=== PATIENT | male | born 1950 | race Caucasian/White ===

== ENCOUNTER 2022-03-09 14:12 | Inpatient (IN) | payer MEDICARE, OTHER ==
[~2022-03-09] VITALS: Ht 190.5 cm; Wt 113.4 kg
[2022-03-09] MEDS ORDERED: ONDA4TAB5 PO (14:51)
[2022-03-09] MEDS ORDERED: ASPI81TA31 PO (14:51)
[2022-03-09] MEDS ORDERED: PANT40TA2 PO (14:51)
[2022-03-09] MEDS ORDERED: ACET-2154 PO (14:51)
[2022-03-09] MEDS ORDERED: DOCU-141 PO (14:51)
[2022-03-09] MEDS ORDERED: ATOR40TA PO (14:51)
[2022-03-09] MEDS ORDERED: INSU100V7 SQ (14:51)
[2022-03-09] MEDS ORDERED: INSU100V36 SQ (14:51)
[2022-03-09 15:31] LABS: CARBON DIOXIDE 24 mmol/L (21-32); CHLORIDE 108 mmol/L (98-107); CREATININE 1.8 mg/dL (0.6-1.3); GLUCOSE 89 mg/dL (74-106); POTASSIUM 4.3 mmol/L (3.5-5.1); UREA NITROGEN, BLOOD 24 mg/dL (7-18)
[2022-03-09 15:35] LABS: ETHANOL < 3 MG/DL (0-0); HEMATOCRIT 37.3 % (36.7-47.1); MEAN CORPUSCULAR VOLUME 88.4 fL (73.0-96.2); PLATELET COUNT (AUTO) 258 K/uL (152-348)
[2022-03-09 15:36] LABS: ALANINE AMINOTRANSFERASE 53 U/L (16-63); ALKALINE PHOSPHATASE 65 U/L (50-136); ASPARTATE AMINOTRANSFERASE 40 U/L (15-37); BILIRUBIN,DIRECT < 0.1 mg/dL (0.0-0.2); BILIRUBIN,TOTAL 0.2 mg/dL (0.2-1.0); TOTAL PROTEIN, SERUM 7.6 g/dL (6.4-8.2)
[2022-03-09 15:37] LABS: ACETAMINOPHEN < 10.0 ug/mL (10-30)
[2022-03-09 15:41] LABS: *AMPHETAMINE, URINE NEGATIVE (NEGATIVE); *CANNABINOID, URINE NEGATIVE (NEGATIVE); *COCCAINE, URINE NEGATIVE (NEGATIVE); *OPIATE, URINE NEGATIVE (NEGATIVE); *PHENCYCLIDINE SCREEN,URINE NEGATIVE (NEGATIVE)
[2022-03-09 15:51] LABS: *BILIRUBIN,URIN 1+ (NEGATIVE); *BLOOD, URINE NEGATIVE (NEGATIVE); *CLARITY,URINE CLEAR (CLEAR); *COLOR,URINE YELLOW (YELLOW); *KETONES,URINE TRACE (NEGATIVE); LEUKOCYTE ESTERASE ,URINE NEGATIVE (NEGATIVE); NITRITE, URINE NEGATIVE (NEGATIVE); PH,URINE 5.5 (5.0-8.0); UGLUCOSE NEGATIVE (NEGATIVE)
[2022-03-09 15:54] LABS: BACTERIA,URINE NONE SEEN /HPF (NONE SEEN); RBC,URINE NONE SEEN /HPF (0-3); SQUAMOUS EPITHELIAL CELL,UR NONE SEEN /HPF (NONE SEEN); WBC,URINE 0-3 /HPF (0-3)
--- NOTE | 2022-03-09 15:54 | NUR ---
Medically cleared by Dr Mendoza. I attempted to give nursing report but [facility] staff is not ready to accept this patient at this time.
--- NOTE | 2022-03-09 17:05 | NUR ---
Note laneesther in EDM - 03/09/22 at 1726 by SALOME Patient ate hospital food try with good appetite. Patient wants his own insulin pen. "OK to have his own insulin." per Dr Mendoza. Patient gave himself 9 units of insulin (Novolog) subQ to his LLQ.
--- NOTE | 2022-03-09 17:05 | NUR ---
Patient ate hospital food tray with very good appetite. Patient wanted his own insulin pen. "OK to have his own insulin." per Dr Mendoza. Patient gave himself 9 units of insulin (Novolog) subQ to his LLQ.
[2022-03-09 17:15] VITALS: BP 139/81
[2022-03-09] MEDS ORDERED: MAGNESIUM HYDROXIDE 30 ML LIQUID UDC PO PRN ×2 (17:15→19:45)
[2022-03-09] MEDS ORDERED: REMEDY ESSENTIAL ZINC PASTE 113 GM TP PRN (17:15)
[2022-03-09] MEDS ORDERED: DEXTROSE 50% 50 ML DISP.SYRIN IV PRN (17:15)
--- NOTE | 2022-03-09 17:25 | NUR ---
Gps/Agricultural Service Worker-Report received from Negar KWAN RN. Admitted patient from ER via gurney , alert, oriented, in no sign of any distress. Upon face to face encounter , noted patient pleasant affect, cooperative . Provided adequate informations on his Health History. Bilateral lower extremity discolored. left great toe w/ some suture , site left open to area..Per Patient he has a Sister Dee Dee , does not know her telephone number, claimed she knows he's being admitted to [facility]. Dr Le was called and was informed of patient's admission. Per patient, Vandana the government affairs manager of his Independent living place made up stories to the Police , who put him on hold. Routine admission care in progress .
--- NOTE | 2022-03-09 18:30 | NUR ---
Gps/Feeder Worker Power Unit Operator- Dr Ladarius Le was called and was informed of the admission
[2022-03-09] MEDS ORDERED: TRAMADOL HCL 50 MG TABLET PO PRN (19:00)
[2022-03-09] MEDS ORDERED: MAG HYDROX/AL HYDROX/SIMETH 30 ML LIQUID UDC PO PRN (19:45)
[2022-03-09] MEDS ORDERED: CLONAZEPAM 0.5 MG TABLET PO PRN (19:45)
[2022-03-09] MEDS ORDERED: INSULIN REGULAR, HUMAN 300 UNIT/3 ML VIAL SQ PRN (21:00)
[2022-03-09] MEDS: INSULIN GLARGINE,HUM 300 UNITS/3 ML CARTRIDGE SQ SCH (21:00)
[2022-03-09] MEDS: ATORVASTATIN 40 MG TABLET PO SCH (21:06)
[2022-03-09] MEDS: BLOOD SUGAR DIAGNOSTIC 1 EACH STRIP VI SCH (21:07)
--- NOTE | 2022-03-09 21:08 | NUR ---
GPS: Pt's blood sugar at bedtime is 73 mg/dl. JOSEFA Sanchez made aware with orders to hold Lantus 30 units SQ tonight. Order carried-out. Pt.made aware. Pt.in dining room area interacting with other pt. Pt.is hyperverbal,has tangential/circumstantial thoughts,seems unpredictable. Safe environment provided. Unit rules explained. Pt's rights handbook/advisement given. Will continue to monitor behavior.
[2022-03-09 21:14] VITALS: BP 152/88
[2022-03-10] MEDS: BLOOD SUGAR DIAGNOSTIC 1 EACH STRIP VI SCH ×4 (06:50→20:58)
[2022-03-10 07:30] VITALS: BP 124/62
[2022-03-10 07:48] LABS: HEMATOCRIT 37.3 % (36.7-47.1); MEAN CORPUSCULAR HEMOGLOBIN 29.2 uug (23.8-33.4); MEAN CORPUSCULAR VOLUME 88.5 fL (73.0-96.2); PLATELET COUNT (AUTO) 245 K/uL (152-348)
[2022-03-10 08:02] LABS: CARBON DIOXIDE 27 mmol/L (21-32); CHLORIDE 107 mmol/L (98-107); CREATININE 1.7 mg/dL (0.6-1.3); GLUCOSE 118 mg/dL (74-106); PHOSPHOROUS 3.2 mg/dL (2.5-4.9); POTASSIUM 4.6 mmol/L (3.5-5.1); UREA NITROGEN, BLOOD 22 mg/dL (7-18)
[2022-03-10] MEDS: NICOTINE 14 MG/24HR PATCH TD SCH (09:01)
[2022-03-10] MEDS: DOCUSATE SODIUM 100 MG CAPSULE PO SCH (09:01)
[2022-03-10] MEDS: ASPIRIN 81 MG TAB.CHEW PO SCH (09:01)
[2022-03-10] MEDS: DIVALPROEX 125 MG TABLET.DR PO SCH ×2 (10:00→21:00)
[2022-03-10] MEDS ORDERED: DEXTROSE 50% 50 ML DISP.SYRIN IV PRN (11:30)
[2022-03-10 16:00] VITALS: BP 160/70
--- NOTE | 2022-03-10 18:22 | NUR ---
Received Patient is awake and responding to his name, forgetful, asking for extra food at all time , redirected and reoriented during shift, depressed mood and anxious affect, pacing the unit, but forgets where is his room, episodes of agitation , gets easily anxious when redirected, unable to formulate a viable plan for self care, continue with treatment plan.
[2022-03-10 20:00] VITALS: BP 128/86
[2022-03-10] MEDS: INSULIN GLARGINE,HUM 300 UNITS/3 ML CARTRIDGE SQ SCH (20:59)
[2022-03-10] MEDS: OLANZAPINE 2.5 MG TABLET PO SCH (21:00)
[2022-03-10] MEDS: ATORVASTATIN 40 MG TABLET PO SCH (21:00)
--- NOTE | 2022-03-10 21:00 | NUR ---
Gps: Received patient alert and oriented x3, ambulatory.self care.watching tv in day room. patient in no sign of any distress. pleasant affect, cooperative . Bilateral lower extremity discolored. left great toe w/ some suture , site left open to area. compliant with meds and care. no behavior issue noted. continue plan of care.
--- NOTE | 2022-03-10 21:32 | NUR ---
patient c/o gen: pain. ultram 50 mg po prn given per patient requested.
--- NOTE | 2022-03-10 22:35 | NUR ---
patient stated i am feeling better now. prn effective for pain.
[2022-03-11] MEDS: BLOOD SUGAR DIAGNOSTIC 1 EACH STRIP VI SCH ×4 (06:19→20:55)
--- NOTE | 2022-03-11 06:37 | NUR ---
Remain calm and cooperative with meds and care. slept 6.15 hrs through the night. blood sugar 77 mg/dl this morning. snack given. patient is alert and oriented x3.in pleasant mood. continue plan of care.
[2022-03-11] MEDS: ASPIRIN 81 MG TAB.CHEW PO SCH (08:31)
[2022-03-11] MEDS: DIVALPROEX 125 MG TABLET.DR PO SCH ×2 (08:31→20:45)
[2022-03-11] MEDS: NICOTINE 14 MG/24HR PATCH TD SCH (08:31)
[2022-03-11] MEDS: DOCUSATE SODIUM 100 MG CAPSULE PO SCH (08:31)
[2022-03-11 08:54] VITALS: BP 122/81
[2022-03-11 16:19] VITALS: BP 119/69
[2022-03-11 20:00] VITALS: BP 113/82
[2022-03-11] MEDS: OLANZAPINE 2.5 MG TABLET PO SCH (20:45)
[2022-03-11] MEDS: ATORVASTATIN 40 MG TABLET PO SCH (20:45)
[2022-03-11] MEDS: INSULIN GLARGINE,HUM 300 UNITS/3 ML CARTRIDGE SQ SCH (20:50)
[2022-03-12] MEDS: ASPIRIN 81 MG TAB.CHEW PO SCH (09:00)
[2022-03-12] MEDS: NICOTINE 14 MG/24HR PATCH TD SCH (09:00)
[2022-03-12] MEDS: DIVALPROEX 125 MG TABLET.DR PO SCH ×2 (09:00→20:48)
[2022-03-12] MEDS: DOCUSATE SODIUM 100 MG CAPSULE PO SCH (09:00)
[2022-03-12] MEDS: INSULIN GLARGINE,HUM 300 UNITS/3 ML CARTRIDGE SQ SCH ×2 (09:00→21:06)
[2022-03-12] MEDS: BLOOD SUGAR DIAGNOSTIC 1 EACH STRIP VI SCH ×4 (09:01→20:48)
--- NOTE | 2022-03-12 13:03 | NUR ---
WOUND CARE CONSULT: PT WAS SEEN FOR LEFT GREAT TOE SUTURES, PRESENT ON ADMISSION. DR NGUYEN CALLED FOR DPM CONSULT. IN AGREEMENT WITH PLAN OF CARE.
--- NOTE | 2022-03-12 15:07 | NUR ---
patient compliant with all medication, interaction with other peers in activity room. glucose monitoring AC and HS, asked for the food at all time. restless pacing in hallway follow direction will continue close monitoring.
--- NOTE | 2022-03-12 15:55 | NUR ---
[facility] Initial Discharge Note: Pt currently resides at an Independent Living located at [address] [place] [address]. No contact number at this time. Pt stated he does not want to go back there. Pt stated he would like a snf around this [place] area. SETH will continue to work with the pt, family and MD to ensure a safe and proper discharge plan.
--- NOTE | 2022-03-12 15:57 | NUR ---
Firearms Report: Manager Field Services completed and submitted a [employer] firearms report for 5150 a danger to others. A copy of report has been placed in patient chart.
--- NOTE | 2022-03-12 16:24 | NUR ---
Clinical SW Note: Pt appeared to visually hallucinate as he began to appear verbally abusive towards staff. Pt was yelling, cursing and threatening. Pt appeared intrusive, hostile and required redirection. Security was called. Pt appeared to be calm and remain calm prior to security arriving.
[2022-03-12 16:32] VITALS: BP 121/82
--- NOTE | 2022-03-12 18:16 | NUR ---
patient is labile, gets easily agitated and has poor insight and poor impulse control . yelling at staffs with no reason requested re-direction at all time.
--- NOTE | 2022-03-12 20:35 | NUR ---
RECEIVED PATIENT IN THE DAY ROOM. HE IS NOTED WATCHING TV. HE IS A/O X 3, HE IS NOTED HYPERVERBAL. FLIGHT OF IDEAS, ATTENTION SEEKER. GRANDIOSE. HE IS ALSO NOTED EASILY IRRITABLE IF STAFF IS UNABLE TO LISTEN TO HIS STORIES. HE REQUIRED REALITY CHECKS. HIS ACCU CHECK IS 160. HE IS ABLE TO COMPLY WITH ALL HIS MEDICATION REGIMENT DIET AND PLAN OF CARE. PATIENT WAS GIVEN PO FLUIDS AND SNACKS. HIS V/S ARE STABLE, HE IS REASSURED FOR HIS SAFETY, SAFETY AND FALL PRECAUTIONS ARE IN PLACE. WILL CONTINUE TO MONITOR.
[2022-03-12] MEDS: ATORVASTATIN 40 MG TABLET PO SCH (20:48)
[2022-03-12] MEDS: OLANZAPINE 2.5 MG TABLET PO SCH (20:48)
[2022-03-12] MEDS: INSULIN REGULAR, HUMAN 300 UNIT/3 ML VIAL SQ PRN (20:50)
--- NOTE | 2022-03-12 21:00 | NUR ---
Left great toe was recheck r/o sutures s/p fall one week ago from admission. No S/S of infection was noted. patient denied pain at this time. Patient was consulted for the management of kidney function, fluid and electrolytes by dr Fowler r/t creatinine of 1.7, refer to doctor's noter, will continue to monitor closely.
[2022-03-12 21:04] VITALS: BP 160/86
[2022-03-12] MEDS: TEMAZEPAM 7.5 MG CAPSULE PO PRN (22:11)
[2022-03-13] MEDS: BLOOD SUGAR DIAGNOSTIC 1 EACH STRIP VI SCH ×4 (06:41→21:00)
[2022-03-13 07:30] VITALS: BP 134/77
[2022-03-13] MEDS: NICOTINE 14 MG/24HR PATCH TD SCH (08:17)
[2022-03-13] MEDS: DIVALPROEX 125 MG TABLET.DR PO SCH ×2 (08:17→20:58)
[2022-03-13] MEDS: ASPIRIN 81 MG TAB.CHEW PO SCH (08:17)
[2022-03-13] MEDS: DOCUSATE SODIUM 100 MG CAPSULE PO SCH (08:17)
[2022-03-13] MEDS: INSULIN GLARGINE,HUM 300 UNITS/3 ML CARTRIDGE SQ SCH ×3 (08:25→21:08)
[2022-03-13] MEDS: OLANZAPINE 5 MG TABLET PO SCH ×2 (08:47→17:00)
--- NOTE | 2022-03-13 08:49 | NUR ---
Patient refuses Lantus 10 units this morning. Pt states "I just take Lantus at night, this is wrong".
[2022-03-13] MEDS: ACETAMINOPHEN 325 MG TABLET PO PRN (12:16)
--- NOTE | 2022-03-13 12:30 | NUR ---
Patient is given Tylenol 650 mg at 12:16 for headache, will be monitored for effectiveness.
--- NOTE | 2022-03-13 15:44 | NUR ---
Received patient awake in the hallway. A/O X 3 to person, place. Patient is cooperative with care and compliant with medications. Pt. is labile, forgetful, disorganized. Pt. is encourage to verbalize feelings and emotions. Fall and safety precautions implemented.
[2022-03-13 16:35] VITALS: BP 155/65
[2022-03-13] MEDS: INSULIN REGULAR, HUMAN 300 UNIT/3 ML VIAL SQ PRN ×2 (16:50→21:09)
--- NOTE | 2022-03-13 17:30 | NUR ---
Patient blood glucose is 139, 2 units of regular insulin was given per sliding scale.
[2022-03-13 20:12] VITALS: BP 156/81
[2022-03-13] MEDS: ATORVASTATIN 40 MG TABLET PO SCH (20:58)
[2022-03-13] MEDS: TEMAZEPAM 7.5 MG CAPSULE PO PRN (22:25)
[2022-03-14] MEDS: BLOOD SUGAR DIAGNOSTIC 1 EACH STRIP VI SCH ×4 (06:04→21:01)
[2022-03-14] MEDS: ACETAMINOPHEN 325 MG TABLET PO PRN ×3 (06:34→21:29)
[2022-03-14 07:30] VITALS: BP 136/77
[2022-03-14] MEDS: DOCUSATE SODIUM 100 MG CAPSULE PO SCH (08:28)
[2022-03-14] MEDS: NICOTINE 14 MG/24HR PATCH TD SCH (08:28)
[2022-03-14] MEDS: INSULIN GLARGINE,HUM 300 UNITS/3 ML CARTRIDGE SQ SCH ×2 (08:28→21:08)
[2022-03-14] MEDS: DIVALPROEX 125 MG TABLET.DR PO SCH ×2 (08:28→21:01)
[2022-03-14] MEDS: ASPIRIN 81 MG TAB.CHEW PO SCH (08:28)
[2022-03-14] MEDS: OLANZAPINE 5 MG TABLET PO SCH ×2 (08:28→17:11)
[2022-03-14] MEDS: INSULIN REGULAR, HUMAN 300 UNIT/3 ML VIAL SQ PRN ×4 (08:30→21:09)
[2022-03-14] MEDS: NUTRISOURCE FIBER 4 GM PACKET PO SCH ×2 (14:30→17:39)
--- NOTE | 2022-03-14 15:43 | NUR ---
Patient is hyperverbal, disorganized, irritable at times, intrusive, compliant with medications. Patient blood glucose is 163, 3 units of regular insulin given per sliding scale. Pt. is cooperative with nursing care. A/O X 3 to person, place. Emotional support provided. Fall and safety precautions implemented.
[2022-03-14 16:00] VITALS: BP 142/81
[2022-03-14 20:26] VITALS: BP 168/86
[2022-03-14] MEDS: ATORVASTATIN 40 MG TABLET PO SCH (21:01)
[2022-03-14] MEDS: TEMAZEPAM 7.5 MG CAPSULE PO PRN (22:01)
[2022-03-15] MEDS: BLOOD SUGAR DIAGNOSTIC 1 EACH STRIP VI SCH ×4 (06:13→20:30)
[2022-03-15 07:30] VITALS: BP 137/65
[2022-03-15] MEDS: NICOTINE 14 MG/24HR PATCH TD SCH (08:19)
[2022-03-15] MEDS: NUTRISOURCE FIBER 4 GM PACKET PO SCH ×2 (08:20→16:41)
[2022-03-15] MEDS: ASPIRIN 81 MG TAB.CHEW PO SCH (08:20)
[2022-03-15] MEDS: DIVALPROEX 125 MG TABLET.DR PO SCH ×2 (08:20→20:30)
[2022-03-15] MEDS: OLANZAPINE 5 MG TABLET PO SCH ×2 (08:20→16:40)
[2022-03-15] MEDS: DOCUSATE SODIUM 100 MG CAPSULE PO SCH (08:20)
[2022-03-15] MEDS: INSULIN GLARGINE,HUM 300 UNITS/3 ML CARTRIDGE SQ SCH ×2 (08:22→20:36)
[2022-03-15] MEDS: ACETAMINOPHEN 325 MG TABLET PO PRN ×2 (14:38→23:18)
--- NOTE | 2022-03-15 15:20 | NUR ---
Patient is sociable, talkative, demanding, intrusive, fixated on snacks. Blood glucose is 91, no insulin was given. Tylenol 650 mg was given at 14:38 for headache, effective. Emotional support provided. Fall and safety precautions implemented.
[2022-03-15 16:00] VITALS: BP 147/90
[2022-03-15] MEDS: INSULIN REGULAR, HUMAN 300 UNIT/3 ML VIAL SQ PRN ×2 (16:43→20:35)
[2022-03-15 20:15] VITALS: BP 143/83
[2022-03-15] MEDS: ATORVASTATIN 40 MG TABLET PO SCH (20:30)
--- NOTE | 2022-03-15 20:30 | NUR ---
received patient in the day room, He was noted watching TV. patient is A/O x 3 able to verbalized his feeling. Pt is hyperverbal. 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 He is attention seeker and he enjoys telling stories about his life to any of our staff. he is somewhat better but he can be unpredictable with grandiose delusions. Patient is reassured for her safety. safety and fall precautions are in place. his v/s are stable. Accu check was 202. given 4 units of regular insulin plus 10 units of lantus. he was given PO Fluids and snacks as well. will continue to monitor.
[2022-03-16 07:30] VITALS: BP 134/80
[2022-03-16] MEDS: BLOOD SUGAR DIAGNOSTIC 1 EACH STRIP VI SCH ×4 (07:32→20:46)
[2022-03-16] MEDS: NICOTINE 14 MG/24HR PATCH TD SCH (09:00)
[2022-03-16] MEDS: ASPIRIN 81 MG TAB.CHEW PO SCH (09:15)
[2022-03-16] MEDS: DOCUSATE SODIUM 100 MG CAPSULE PO SCH (09:17)
[2022-03-16] MEDS: OLANZAPINE 5 MG TABLET PO SCH ×2 (09:17→16:56)
[2022-03-16] MEDS: DIVALPROEX 125 MG TABLET.DR PO SCH ×3 (09:17→21:00)
[2022-03-16] MEDS: NUTRISOURCE FIBER 4 GM PACKET PO SCH ×2 (09:18→16:56)
[2022-03-16] MEDS: INSULIN GLARGINE,HUM 300 UNITS/3 ML CARTRIDGE SQ SCH ×2 (09:20→20:50)
--- NOTE | 2022-03-16 13:00 | NUR ---
14 days PC hearing done ,held for Gravely disabled and DTO.
--- NOTE | 2022-03-16 15:45 | NUR ---
Received Patient is hyperverbal intrusive disorganized easily agitated and irritable at times. PRN Collin offered patient refused ,glucose monitoring before meals,patient has been c/o food from his tray is never enough for him. will continue close monitoring.
[2022-03-16 16:18] VITALS: BP 134/80
[2022-03-16] MEDS: INSULIN REGULAR, HUMAN 300 UNIT/3 ML VIAL SQ PRN (16:55)
[2022-03-16] MEDS: ATORVASTATIN 40 MG TABLET PO SCH (20:45)
--- NOTE | 2022-03-16 21:00 | NUR ---
Received patient in the day room. he is noted A/O x 2 to 3. He continue hyperverbal and hypersexual. He is easily irritable. Patient has poor insight and judgment as to his admission to [facility]. Patient refused Depakote 125mg PO QHS. he stated, "i had my hearing today and i found out that i was taking depakote against my consent. that medication is for crazy people and i am not crazy and i won't take it anymore. i am not crazy". patient was informed of the importance to comply with his medication regiment to improved his symptoms yet refused. His accu check was 116. he was given 10 unit Lantus only. Patient was given PO fluids and snacks. his V/S are stable. he is reassured for his safety, safety and fall precautions are in place. will continue to monitor.
[2022-03-16] MEDS: ACETAMINOPHEN 325 MG TABLET PO PRN (21:44)
[2022-03-16] MEDS: TEMAZEPAM 7.5 MG CAPSULE PO PRN (21:44)
[2022-03-17] MEDS: BLOOD SUGAR DIAGNOSTIC 1 EACH STRIP VI SCH ×4 (06:41→21:10)
[2022-03-17 07:42] VITALS: BP 126/78
[2022-03-17] MEDS: DOCUSATE SODIUM 100 MG CAPSULE PO SCH (08:47)
[2022-03-17] MEDS: ASPIRIN 81 MG TAB.CHEW PO SCH (08:47)
[2022-03-17] MEDS: DIVALPROEX 125 MG TABLET.DR PO SCH ×2 (08:47→20:16)
[2022-03-17] MEDS: NICOTINE 14 MG/24HR PATCH TD SCH (08:47)
[2022-03-17] MEDS: NUTRISOURCE FIBER 4 GM PACKET PO SCH ×2 (08:48→16:21)
[2022-03-17] MEDS: OLANZAPINE 5 MG TABLET PO SCH ×2 (08:48→16:21)
[2022-03-17] MEDS: INSULIN GLARGINE,HUM 300 UNITS/3 ML CARTRIDGE SQ SCH ×2 (08:54→21:12)
[2022-03-17] MEDS: INSULIN REGULAR, HUMAN 300 UNIT/3 ML VIAL SQ PRN ×2 (11:37→21:12)
[2022-03-17 16:33] VITALS: BP 152/84
[2022-03-17] MEDS: ACETAMINOPHEN 325 MG TABLET PO PRN (18:59)
[2022-03-17 19:53] VITALS: BP 142/83
[2022-03-17] MEDS: ATORVASTATIN 40 MG TABLET PO SCH (20:16)
--- NOTE | 2022-03-17 20:32 | NUR ---
Pt hyperverbal, delusional, easily irritable, needy, labile with flight of ideas. Compliant with medications and care. No combative behavior noted at this time.
[2022-03-17] MEDS: TEMAZEPAM 7.5 MG CAPSULE PO PRN (23:24)
[2022-03-18] MEDS: BLOOD SUGAR DIAGNOSTIC 1 EACH STRIP VI SCH ×4 (06:33→21:05)
[2022-03-18 07:39] VITALS: BP 147/83
[2022-03-18] MEDS: ASPIRIN 81 MG TAB.CHEW PO SCH (08:14)
[2022-03-18] MEDS: DOCUSATE SODIUM 100 MG CAPSULE PO SCH (08:15)
[2022-03-18] MEDS: OLANZAPINE 5 MG TABLET PO SCH ×2 (08:15→17:09)
[2022-03-18] MEDS: DIVALPROEX 125 MG TABLET.DR PO SCH (08:15)
[2022-03-18] MEDS: INSULIN GLARGINE,HUM 300 UNITS/3 ML CARTRIDGE SQ SCH ×2 (08:19→21:09)
[2022-03-18] MEDS: NUTRISOURCE FIBER 4 GM PACKET PO SCH ×2 (08:22→17:09)
[2022-03-18] MEDS: NICOTINE 14 MG/24HR PATCH TD SCH (08:23)
[2022-03-18] MEDS: INSULIN REGULAR, HUMAN 300 UNIT/3 ML VIAL SQ PRN ×3 (12:03→21:09)
[2022-03-18] MEDS: ACETAMINOPHEN 325 MG TABLET PO PRN ×2 (13:44→17:20)
--- NOTE | 2022-03-18 15:36 | NUR ---
Patient is hyperverbal intrusive disorganized easily agitated and irritable at times.patient is loud and augmentative PRN Klonopin offered patient refused ,glucose monitoring before meals,patient has been c/o food from his tray is never enough for him, attempted to take food from other peers tray. will continue close monitoring.
[2022-03-18 15:40] VITALS: BP 148/79
[2022-03-18 20:02] VITALS: BP 164/67
--- NOTE | 2022-03-18 20:30 | NUR ---
Received patient in the day room watching TV. he is noted A/O x 2 to 3. He is noted with grandiose delusions, he is easily irritable, he got upset when another resident requested to change TV to another channel. He needs redirections, reassurances and to set limits and boundaries. His V/S are stable. His Blood glucose is 227. given 4 units regular insulin sliding scale plus 10 units Lantus. He was given PO fluids and sacks. he is reassured for his savety. safety and fall precautions are in place. will continue to monitor.
[2022-03-18] MEDS ORDERED: DIVALPROEX 250 MG TABLET.DR PO SCH (21:00)
[2022-03-18] MEDS ORDERED: DIVALPROEX 125 MG TABLET.DR PO SCH (21:00)
[2022-03-18] MEDS: ATORVASTATIN 40 MG TABLET PO SCH (21:04)
[2022-03-19] MEDS: BLOOD SUGAR DIAGNOSTIC 1 EACH STRIP VI SCH ×4 (07:25→20:11)
[2022-03-19 08:33] VITALS: BP 148/43
[2022-03-19] MEDS: INSULIN GLARGINE,HUM 300 UNITS/3 ML CARTRIDGE SQ SCH ×2 (08:46→20:16)
[2022-03-19] MEDS: INSULIN REGULAR, HUMAN 300 UNIT/3 ML VIAL SQ PRN ×2 (08:47→11:59)
[2022-03-19] MEDS: ACETAMINOPHEN 325 MG TABLET PO PRN (08:48)
[2022-03-19] MEDS: ASPIRIN 81 MG TAB.CHEW PO SCH (08:48)
[2022-03-19] MEDS: DOCUSATE SODIUM 100 MG CAPSULE PO SCH (08:48)
[2022-03-19] MEDS: OLANZAPINE 5 MG TABLET PO SCH ×2 (08:48→17:00)
[2022-03-19] MEDS: NUTRISOURCE FIBER 4 GM PACKET PO SCH ×2 (09:00→17:00)
[2022-03-19] MEDS: DIVALPROEX 250 MG TABLET.DR PO SCH ×3 (09:00→17:00)
[2022-03-19] MEDS: NICOTINE 14 MG/24HR PATCH TD SCH (09:00)
--- NOTE | 2022-03-19 14:04 | NUR ---
Received patient is labile, intrusive, and has poor boundaries.easily to get agitation and verbally abuse toward to staffs, The patient has poor insight impair impulse control ,continue refuse Depsharif PLASCENCIA made aware. attend in group activity will continue close monitoring.
[2022-03-19] MEDS ORDERED: OLANZAPINE 10 MG VIAL IM ONE (15:00)
[2022-03-19] MEDS ORDERED: LORAZEPAM 2 MG/1 ML VIAL IM ONE (15:00)
--- NOTE | 2022-03-19 15:18 | NUR ---
Clinical SW Note: Pt stated to SW that he would like to return to his independent living. Pt refused SW's continuation of care treatment plan to a [facility] facility.
[2022-03-19 16:32] VITALS: BP 129/75
--- NOTE | 2022-03-19 16:43 | NUR ---
found patient sited on the floor with un witnessed fall , assisted patient up to chair ,patient able to moved all extremities . vital sign taken as follow T 98.3F, P91,RR 18 B/P 125/76.C [facility] HAND OR MACHINE PASTER notified with new order made, will continue close monitoring.
[2022-03-19] MEDS: ATORVASTATIN 40 MG TABLET PO SCH (20:11)
[2022-03-19 20:20] VITALS: BP 143/86
--- NOTE | 2022-03-19 21:00 | NUR ---
Received patient in the day room watching TV, He is noted A/O x 2. He is noted calm and cooperative at this time, but he can be unpredictable. Accu check is 122. he was given 10 unit of lantus. Pt required constant monitor and reassurance. His V/S are stable. He is reassured for hir safety. safety and fall precautions are in place. he was given PO fluids and snacks. will continue to monitor.
[2022-03-20] MEDS: BLOOD SUGAR DIAGNOSTIC 1 EACH STRIP VI SCH ×4 (06:32→20:17)
[2022-03-20 07:38] VITALS: BP 125/68
[2022-03-20] MEDS: INSULIN GLARGINE,HUM 300 UNITS/3 ML CARTRIDGE SQ SCH ×2 (09:00→20:23)
[2022-03-20] MEDS: OLANZAPINE 5 MG TABLET PO SCH ×3 (09:00→17:13)
[2022-03-20] MEDS: DIVALPROEX 250 MG TABLET.DR PO SCH ×4 (09:00→17:13)
[2022-03-20] MEDS: NICOTINE 14 MG/24HR PATCH TD SCH (09:03)
[2022-03-20] MEDS: DOCUSATE SODIUM 100 MG CAPSULE PO SCH (09:03)
[2022-03-20] MEDS: ASPIRIN 81 MG TAB.CHEW PO SCH (09:03)
[2022-03-20] MEDS: NUTRISOURCE FIBER 4 GM PACKET PO SCH ×2 (09:03→17:14)
[2022-03-20] MEDS: ACETAMINOPHEN 325 MG TABLET PO PRN (09:04)
[2022-03-20] MEDS: INSULIN REGULAR, HUMAN 300 UNIT/3 ML VIAL SQ PRN ×2 (12:21→20:21)
--- NOTE | 2022-03-20 12:27 | NUR ---
Patient blood glucose is 152, 2 units of regular insulin given per sliding scale.
--- NOTE | 2022-03-20 14:47 | NUR ---
Received patient awake in the activity room. A/O X 2 to person, place. Pt. 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 is cooperative with care, compliant with medications. Patient was admitted with four stitches on his left great toe, Pearl Peller was informed and asked me to take them off, since it was in placed for more than 10 days, wound was healed and no signs of infection noted. Active listening provided. Fall and safety precautions implemented.
[2022-03-20 16:00] VITALS: BP 116/63
[2022-03-20 20:04] VITALS: BP 120/68
[2022-03-20] MEDS: ATORVASTATIN 40 MG TABLET PO SCH (20:17)
--- NOTE | 2022-03-20 21:00 | NUR ---
RECEIVED PATIENT IN THE DAY ROOM. HE IS NOTED WATCHING TV. HE IS A/O X 2 TO 3. HE IS ABLE TO AMBULATE WITH STEADY GAIT, HE IS EASILY IRRITABLE, CONTINUE WITH GRANDIOSE DELUSIONS. HE IS ARGUMENTATIVE AND INTIMIDATING. PATIENT REQUIRES REALITY ORIENTATION AND REDIRECTIONS. HE IS MEDICATION COMPLIANT. HIS ACCU CHECK QHS WAS 155, 2 UNITS OF REGULAR INSULIN WERE GIVEN PLUS 10 UNITS OF LANTUS. HIS V/S ARE STABLE. HE WAS GIVEN PO FLUIDS AND SNACKS. HE IS REASSURED FOR HIS SAFETY. SAFETY AND FALL PRECAUTIONS ARE IN PLACE. WILL CONTINUE TO MONITOR.
[2022-03-20] MEDS: TEMAZEPAM 7.5 MG CAPSULE PO PRN (23:48)
[2022-03-21] MEDS: BLOOD SUGAR DIAGNOSTIC 1 EACH STRIP VI SCH ×4 (06:53→21:32)
[2022-03-21 07:30] VITALS: BP 128/85
[2022-03-21] MEDS: NICOTINE 14 MG/24HR PATCH TD SCH (08:38)
[2022-03-21] MEDS: DIVALPROEX 250 MG TABLET.DR PO SCH ×3 (08:39→16:54)
[2022-03-21] MEDS: ASPIRIN 81 MG TAB.CHEW PO SCH (08:39)
[2022-03-21] MEDS: NUTRISOURCE FIBER 4 GM PACKET PO SCH ×2 (08:39→16:54)
[2022-03-21] MEDS: OLANZAPINE 5 MG TABLET PO SCH ×2 (08:39→16:54)
[2022-03-21] MEDS: INSULIN GLARGINE,HUM 300 UNITS/3 ML CARTRIDGE SQ SCH ×2 (08:39→21:37)
[2022-03-21] MEDS: DOCUSATE SODIUM 100 MG CAPSULE PO SCH (08:39)
[2022-03-21 16:00] VITALS: BP 146/63
[2022-03-21] MEDS: ACETAMINOPHEN 325 MG TABLET PO PRN (16:54)
--- NOTE | 2022-03-21 17:51 | NUR ---
Patient was received in the hallway. Patient is hyperverbal, needy, demanding, fixated on snacks, territorial about tv channels and telephone. Pt. is complaint with medications. Pt. is encourage to verbalize concerns. Fall and safety precautions implemented.
[2022-03-21 17:56] LABS: ALANINE AMINOTRANSFERASE 54 U/L (16-63); ALKALINE PHOSPHATASE 82 U/L (50-136); ASPARTATE AMINOTRANSFERASE 35 U/L (15-37); BILIRUBIN,TOTAL 0.2 mg/dL (0.2-1.0); CARBON DIOXIDE 27 mmol/L (21-32); CHLORIDE 105 mmol/L (98-107); CREATININE 1.6 mg/dL (0.6-1.3); GLUCOSE 179 mg/dL (74-106); POTASSIUM 4.1 mmol/L (3.5-5.1); TOTAL PROTEIN, SERUM 7.8 g/dL (6.4-8.2); UREA NITROGEN, BLOOD 24 mg/dL (7-18)
[2022-03-21] MEDS: INSULIN REGULAR, HUMAN 300 UNIT/3 ML VIAL SQ PRN ×2 (18:01→21:35)
[2022-03-21 19:54] VITALS: BP 156/69
--- NOTE | 2022-03-21 20:30 | NUR ---
RECEIVED PATIENT IN THE DAY ROOM. HE IS NOTED A/O X 3 HE IS NOTED CALM AND PLEASANT UPON APPROACHED. HE HAS POOR INSIGHT AND JUDGMENT INTO HIS ADMISSION TO [facility] AND HIS MENTAL ILLNESS. PT AWARE OF HIS DISCHARGE FOR TOMORROW MORNING. HE STATED, "ONCE I AM DISCHARGED, I AM GOING TO [facility]". ACCU CHECK QHS IS 150, GIVEN 2 UNITS OF REGULAR INSULIN PER SLIDING SCALE PLUS 10 UNITS LANTUS. V/S are stable. PO fluids and snacks were given. patient is reassured for his safety. safety and fall precautions are in place. will continue to monitor.
[2022-03-21] MEDS: ATORVASTATIN 40 MG TABLET PO SCH (21:31)
[2022-03-21] MEDS: TEMAZEPAM 7.5 MG CAPSULE PO PRN (21:50)
--- NOTE | 2022-03-22 06:22 | NUR ---
Patient slept for approx. 6.30 hrs through the night. He was complaint with medication regiment diet and care. will endorse to incoming shift.
[2022-03-22] MEDS: BLOOD SUGAR DIAGNOSTIC 1 EACH STRIP VI SCH ×2 (07:04→11:30)
[2022-03-22 07:30] VITALS: BP 141/85
[2022-03-22] MEDS: NICOTINE 14 MG/24HR PATCH TD SCH (08:38)
[2022-03-22] MEDS: INSULIN GLARGINE,HUM 300 UNITS/3 ML CARTRIDGE SQ SCH (08:39)
[2022-03-22] MEDS: ASPIRIN 81 MG TAB.CHEW PO SCH (08:39)
[2022-03-22] MEDS: OLANZAPINE 5 MG TABLET PO SCH (08:39)
[2022-03-22] MEDS: DOCUSATE SODIUM 100 MG CAPSULE PO SCH (08:39)
[2022-03-22] MEDS: NUTRISOURCE FIBER 4 GM PACKET PO SCH (08:39)
[2022-03-22] MEDS: DIVALPROEX 250 MG TABLET.DR PO SCH ×2 (08:39→12:37)
[2022-03-22] MEDS: ACETAMINOPHEN 325 MG TABLET PO PRN (10:02)
[2022-03-22] MEDS: INSULIN REGULAR, HUMAN 300 UNIT/3 ML VIAL SQ PRN (12:36)
--- NOTE | 2022-03-22 13:37 | NUR ---
SW Discharge Note: Pt will be discharged to home via bus pass transportation at 2PM. Pt is aware and agreeable with discharge plan. Pt stated to this selling underwriter to not contact any family. Pt is alert and oriented x3, is unable to plan for self-care at this time. However, pt is willing to accept follow-up care at [facility] located at [address] [place] [address] via teletherapy on Saturday the 2021 at 1:30PM. Pt denies any suicidal or homicidal ideation. Pt will follow-up at the facility with the psychiatrist assigned at [facility] upon consultation confirmed by Raegan at the office and Medical Sales Associate, Dr. Silverman in [place]. Pt presents with calm mood and congruent affect. PHARMACY: [facility] [id number] [facility], [address] [place] [address].
--- NOTE | 2022-03-22 14:19 | NUR ---
Received orders to discharge this patient to self via bus pass transportation. Pt is aware and agreeable with discharge plans. Pt stated to not contact any family. Patient's valuables, belongings, and medications were returned to patient. Pt. denies SI/HI AH/VH, SOB, pain or any discomfort. Patient is alert oriented X 4. Patient is sociable, pleasant, talkative, and cooperative. Patient is compliant with medications. Patient left the unit at 14:15. Active listening and emotional support provided. Fall and safety precautions implemented.
== END 2022-03-22 14:15 | disposition home or self-care (01) | DRG 885 ==
LOC: ER 14:12 → GPS 17:07
PROVIDERS: ADMIT Psychiatry & Neurology Psychiatry; ATTEND Nurse Practitioner Acute Care
DX: F29 Unspecified psychosis not due to a substance or known physiological condition (principal); N17.0 Acute kidney failure with tubular necrosis; N18.9 Chronic kidney disease, unspecified; K21.9 Gastro-esophageal reflux disease without esophagitis; F39 Unspecified mood [affective] disorder; K59.00 Constipation, unspecified; Z79.82 Long term (current) use of aspirin; E78.5 Hyperlipidemia, unspecified; Z79.4 Long term (current) use of insulin; F20.9 Schizophrenia, unspecified; E11.51 Type 2 diabetes mellitus with diabetic peripheral angiopathy without gangrene; E11.22 Type 2 diabetes mellitus with diabetic chronic kidney disease; Z20.822 Contact with and (suspected) exposure to COVID-19; S91.112D Laceration without foreign body of left great toe without damage to nail, subsequent encounter; X58.XXXD Exposure to other specified factors, subsequent encounter; M79.675 Pain in left toe(s); E11.40 Type 2 diabetes mellitus with diabetic neuropathy, unspecified
CPT/HCPCS: 36415; 73521; 76770; 80164; 83735; 84100; 84443; 85025; 93005; A4663; G0480; J1815; J2060; J2358; J3490